=== PATIENT | male | born 1995 | race Hispanic/Latino ===

== ENCOUNTER 2021-09-09 18:09 | Emergency (ER) | payer BC ==
[2021-09-09] MEDS ORDERED: diphenhydrAMINE 50 MG/ML VIAL ONE (20:25)
[2021-09-09] MEDS ORDERED: Metoclopramide HCl 10 MG/2 ML VIAL ONE (20:25)
== END 2021-09-09 21:28 | disposition home or self-care (01) ==
LOC: ERS 18:09
DX: G43.909 Migraine, unspecified, not intractable, without status migrainosus (principal)
CPT/HCPCS: 96374; 96375; J1200; J2765

== ENCOUNTER 2022-12-02 13:26 | Emergency (ER) | payer BC, OTHER ==
[2022-12-02] MEDS ORDERED: Fluorescein Opthalmic Strip ONE (14:12)
[2022-12-02] MEDS ORDERED: Proparacaine 0.5% Opth 15 ML BOT ONE (14:12)
[2022-12-02] MEDS ORDERED: Ibuprofen 200 MG TAB ONE (14:28)
== END 2022-12-02 14:43 | disposition home or self-care (01) ==
LOC: ERS 13:26
DX: H00.014 Hordeolum externum left upper eyelid (principal); L03.213 Periorbital cellulitis
CPT/HCPCS: 99283